=== PATIENT | male | born 1970 | race Caucasian/White ===

== ENCOUNTER 2021-02-08 17:38 | Emergency (ER) | payer OTHER ==
[~2021-02-08] VITALS: Ht 177.8 cm; Wt 99.8 kg
[2021-02-08 17:56] VITALS: BP 134/89
[2021-02-08] MEDS ORDERED: KETOROLAC 30 MG/ML VIAL IM ONE (18:05)
[2021-02-08] MEDS ORDERED: IBUPROFEN 600 MG TAB PO ONE (18:55)
[2021-02-08] MEDS ORDERED: NAPR-1704 PO (18:56)
[2021-02-08] MEDS ORDERED: CAPS1ADH5 TP (18:56)
--- NOTE | 2021-02-08 19:00 | NUR ---
MEDICATED PER [facility] ORDER, TOLERATED WELL.
[2021-02-08 19:25] VITALS: BP 121/78
--- NOTE | 2021-02-08 19:25 | NUR ---
Patient discharged with v/s stable. Written and verbal after care instructions given and explained. Patient alert, oriented and verbalized understanding of instructions. Ambulatory with steady gait. All questions addressed prior to discharge. ID band removed. Patient advised to follow up with PMD. Rx of NAPROXEN,SALONPAS given. Patient educated on indication of medication including possible reaction and side effects. Opportunity to ask questions provided and answered.
== END 2021-02-08 19:25 | disposition home or self-care (01) ==
LOC: MED 17:38
DX: S29.012A Strain of muscle and tendon of back wall of thorax, initial encounter (principal); Z88.0 Allergy status to penicillin; X50.0XXA Overexertion from strenuous movement or load, initial encounter; Y93.89 Activity, other specified; Y92.89 Other specified places as the place of occurrence of the external cause; Y99.8 Other external cause status
CPT/HCPCS: 96372; 99283; J1885

== ENCOUNTER 2022-04-10 09:14 | Emergency (ER) | payer OTHER ==
[~2022-04-10] VITALS: Ht 172.7 cm; Wt 104.3 kg
[~2022-04-10 09:14] MED LIST: CAPS1ADH5 TP; NAPR-1704 PO
[2022-04-10 09:19] VITALS: BP 130/93
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
[2022-04-10] MEDS ORDERED: IBUPROFEN 600 MG TAB PO ONE (10:35)
[2022-04-10] MEDS ORDERED: IBUP-2213 PO (10:43)
--- NOTE | 2022-04-10 10:45 | NUR ---
pt placed in right shoulder sling.
--- NOTE | 2022-04-10 10:50 | NUR ---
Patient discharged with v/s stable. Written and verbal after care instructions given and explained. Patient alert, oriented and verbalized understanding of instructions. Ambulatory with steady gait. All questions addressed prior to discharge. ID band removed. Patient advised to follow up with PMD. Patient educated on indication of medication including possible reaction and side effects. Opportunity to ask questions provided and answered.
== END 2022-04-10 10:50 | disposition home or self-care (01) ==
LOC: MED 09:14
DX: S50.01XA Contusion of right elbow, initial encounter (principal); Z88.0 Allergy status to penicillin; Z79.899 Other long term (current) drug therapy; V89.2XXA Person injured in unspecified motor-vehicle accident, traffic, initial encounter; Y93.89 Activity, other specified; Y92.89 Other specified places as the place of occurrence of the external cause; Y99.8 Other external cause status
CPT/HCPCS: 73080; 99283

== ENCOUNTER 2023-10-12 13:45 | Emergency (ER) | payer OTHER ==
[~2023-10-12] VITALS: Ht 170.2 cm; Wt 109.8 kg
[~2023-10-12 13:45] MED LIST changes: +IBUP-2213 PO
[2023-10-12 13:56] VITALS: BP 147/102; PULSE 106; RESP 18; TEMP 99.1; O2SAT 98
[2023-10-12 14:10] VITALS: O2SAT 98
[2023-10-12] MEDS ORDERED: LID5T TP (14:12)
[2023-10-12] MEDS ORDERED: ACET-8905 PO (14:12)
[2023-10-12 14:18] VITALS: BP 135/88; PULSE 88; RESP 16; TEMP 98.2; O2SAT 99
== END 2023-10-12 14:18 | disposition home or self-care (01) ==
LOC: MED 13:45
DX: S46.012A Strain of muscle(s) and tendon(s) of the rotator cuff of left shoulder, initial encounter (principal); M54.30 Sciatica, unspecified side; Z88.0 Allergy status to penicillin; X58.XXXA Exposure to other specified factors, initial encounter; Y93.89 Activity, other specified; Y92.89 Other specified places as the place of occurrence of the external cause; Y99.8 Other external cause status
CPT/HCPCS: 99283